=== PATIENT | female | born 1995 | race Two or more races ===

== ENCOUNTER 2020-04-21 10:57 | Observation (INO) | payer MEDICAID ==
[2020-04-21] MEDS ORDERED: PREN-96 PO (13:09)
== END 2020-04-21 15:00 | disposition home or self-care (01) ==
LOC: LDRP 10:57
PROVIDERS: ADMIT Specialist; ATTEND Specialist
DX: O48.0 Post-term pregnancy (principal); O62.9 Abnormality of forces of labor, unspecified; Z3A.40 40 weeks gestation of pregnancy
CPT/HCPCS: 59025; 76818; 81002; G0378

== ENCOUNTER 2020-04-22 13:00 | Observation (INO) | payer MEDICAID ==
[~2020-04-22 13:00] MED LIST: PREN-96 PO
== END 2020-04-22 14:25 | disposition home or self-care (01) ==
LOC: LDRP 13:00
PROVIDERS: ADMIT Specialist; ATTEND Specialist
DX: O26.893 Other specified pregnancy related conditions, third trimester (principal); R10.9 Unspecified abdominal pain; Z20.828 Contact with and (suspected) exposure to other viral communicable diseases; O99.891 Other specified diseases and conditions complicating pregnancy; H53.8 Other visual disturbances; Z3A.40 40 weeks gestation of pregnancy
CPT/HCPCS: 59025; 81002; G0378; U0003

== ENCOUNTER 2020-04-24 11:54 | Inpatient (IN) | payer MEDICAID ==
[~2020-04-24] VITALS: Ht 160 cm; Wt 123.8 kg
[2020-04-24] MEDS ORDERED: LIDOCAINE 2%HCL (LOCAL ANESTH.) INJ 20ML MDV IJ ONE (13:00)
[2020-04-24] MEDS ORDERED: WITCH HAZEL-GLYCERIN PAD TOP PRN (13:00)
[2020-04-24] MEDS ORDERED: DERMOPLAST 60ML BOTTLE TOP PRN (13:00)
[2020-04-24] MEDS ORDERED: PHISODERM TOP SOLN 240ML BTL TOP PRN (13:00)
[2020-04-24] MEDS: LACTATED RINGER'S 1,000 ML IV SCH (13:40)
[2020-04-24] MEDS: miSOPROStol 50 MCG per PRE-CUT 1/2 TAB PO PRN ×2 (13:59→18:07)
[2020-04-24 14:22] LABS: Albumin 2.9 g/dL (3.4-5.0); Calcium 8.9 mg/dL (8.5-10.1); Potassium 4.3 mmol/L (3.5-5.1); Uric Acid 4.6 mg/dL (2.6-6.0)
[2020-04-24 14:23] LABS: Basophils # (auto) 0 10 ^3/uL (0-0.2); Basophils % (auto) 0.3 % (0.0-2.0); Eosinophils # (auto) 0.1 10 ^3/uL (0-0.8); Eosinophils % (auto) 0.9 % (0.0-7.0); Hematocrit 38.7 % (36.0-46.0); Hemoglobin 12.7 g/dL (12.2-16.2); Lymphocytes # (auto) 1.4 10 ^3/uL (0.4-5.4); Lymphocytes % (auto) 11.7 % (10.0-50.0); Mean Corpuscular Hemoglobin 28.3 pg (28.0-32.0); Mean Corpuscular Hgb Conc. 32.9 g/dL (32.0-36.0); Mean Corpuscular Volume 86.1 fL (80.0-100.0); Monocytes % (auto) 8.3 % (0.0-12.0); Neutrophils # (auto) 9.6 10 ^3/uL (1.6-8.6); Neutrophils % (auto) 78.8 % (37.0-80.0); Platelet Count (auto) 377 10^3/uL (140-450); Red Blood Cells 4.49 10^6/uL (4.0-5.20); Red Cell Distribution Width 13.6 % (11.8-14.3); White Blood Cell 12.2 10^3/uL (4.4-10.8)
[2020-04-24 14:26] LABS: Bilirubin, Total 0.2 mg/dL (0.2-1.0); Total Protein 7.2 g/dL (6.4-8.2)
[2020-04-24 14:27] LABS: INR 0.94 (0.9-1.15); Partial Thromboplastin Time 27.1 sec (23.0-31.2)
[2020-04-24 14:57] LABS: Urine Bacteria NONE SEEN /hpf (None Seen); Urine Blood Negative /uL (Negative); Urine Specific Gravity 1.005 (1.001-1.035); Urine WBC 228 /hpf (0 - 5)
[2020-04-24 15:06] LABS: Amphetamine Screen, Urine NEGATIVE (NEGATIVE); Barbiturate Scree,Urine NEGATIVE (NEGATIVE); Benzodiazephine Screen, Urine NEGATIVE (NEGATIVE); Cannabinoid Screen, Urine NEGATIVE (NEGATIVE); Cocaine Screen, Urine NEGATIVE (NEGATIVE); Opiate Scree,Urine NEGATIVE (NEGATIVE); Phencyclidine Screen, Urine NEGATIVE (NEGATIVE)
[2020-04-24 15:15] LABS: Alcohol, Urine < 3.0 mg/dL (0-10)
[2020-04-24] MEDS ORDERED: LACTATED RINGER'S 1,000 ML IV ONE (19:15)
[2020-04-24] MEDS ORDERED: fentaNYL CITRATE 100 MCG/2 ML VL IV ONE (19:15)
[2020-04-24] MEDS ORDERED: ePHEDrine SULFATE 50 MG/ML AMP IV ONE ×2 (19:15→23:00)
[2020-04-24] MEDS ORDERED: LIDOCAINE HCL 2 %PF INJ 10ML AMP IJ ONE (19:15)
[2020-04-24] MEDS ORDERED: ROPIVACAINE HCL 200 ML EPI SCH ×2 (19:15→23:00)
[2020-04-24] MEDS ORDERED: NALOXONE HCL 0.4 MG/ML VIAL IV ONE ×2 (19:15→23:00)
[2020-04-24] MEDS ORDERED: LACTATED RINGER'S 500 ML IV ONE (23:00)
[2020-04-24] MEDS ORDERED: SODIUM CHLORIDE 0.9% 500 ML IV PRN (23:00)
[2020-04-25] MEDS: LACTATED RINGER'S 1,000 ML IV SCH ×2 (05:00→07:50)
[2020-04-25 05:06] LABS: RPR Non Reactive (Non Reactive); Rubella Antibodies, IgG 1.27 index (Immune >0.99)
[2020-04-25] MEDS ORDERED: LACT. RINGERS/OXYTOCIN 20UNITS 1,000 ML IV SCH ×2 (05:45→06:45)
[2020-04-25] MEDS ORDERED: TERBUTALINE SULFATE 1 MG/ML 1ML VIAL SC ONE (05:45)
[2020-04-25] MEDS ORDERED: LIDOCAINE HCL 2 %PF INJ 10ML AMP IJ ONE ×2 (07:46→11:30)
[2020-04-25] MEDS ORDERED: PROMETHAZINE HCL 25 MG/ML 1ML IV ONE (11:15)
[2020-04-25] MEDS ORDERED: NALOXONE HCL 0.4 MG/ML VIAL IV ONE (11:30)
[2020-04-25] MEDS ORDERED: ePHEDrine SULFATE 50 MG/ML AMP IV ONE (11:30)
[2020-04-25] MEDS ORDERED: fentaNYL CITRATE 100 MCG/2 ML VL IV ONE (11:30)
[2020-04-25] MEDS ORDERED: GENTAMICIN SULFATE 80 MG in D5W 5% 100 ML IV SCH (12:42)
[2020-04-25] MEDS ORDERED: ACETAMINOPHEN 325 MG TAB PO PRN (13:30)
[2020-04-25] MEDS ORDERED: ACETAMINOPHEN IV 1000 MG/100ML (10MG/ML) IV ONE (13:45)
[2020-04-25] MEDS ORDERED: ceFAZolin 1GM/50ML 50 ML IV SCH ×3 (14:00→23:00)
[2020-04-25] MEDS ORDERED: ROPIVACAINE HCL 100 ML EPI SCH (15:00)
[2020-04-25] MEDS ORDERED: PROPOFOL 10 MG/ML 20 ML IV ONE (16:20)
[2020-04-25] MEDS ORDERED: ROCURONIUM 10MG/ML 10ML VIAL IV ONE (16:23)
[2020-04-25] MEDS ORDERED: fentaNYL CITRATE 100 MCG/2 ML VL ONE (16:28)
[2020-04-25] MEDS ORDERED: LABETALOL HCL 5 MG/ML ML 20ML VIAL IV ONE (17:00)
[2020-04-25] MEDS ORDERED: oxyTOCIN 10 UNIT/ML 10ML VIAL ONE (17:08)
[2020-04-25] MEDS ORDERED: ONDANSETRON HCL 4 MG/2 ML VIAL ONE (17:19)
[2020-04-25] MEDS ORDERED: ACETAMINOPHEN IV 1000 MG/100ML (10MG/ML) IV PRN (17:45)
[2020-04-25] MEDS ORDERED: LACTATED RINGER'S 1,000 ML IV SCH (17:45)
[2020-04-25] MEDS ORDERED: GUM (CHEWING) 1 GUM CHEW CHEW ONE (17:45)
[2020-04-25] MEDS ORDERED: ONDANSETRON HCL 4 MG/2 ML VIAL IV PRN (17:45)
[2020-04-25] MEDS ORDERED: METOCLOPRAMIDE HCL 5MG/ml INJ 2ml VIAL IV PRN (18:00)
[2020-04-25] MEDS ORDERED: HYDROmorphone HCL 2 MG/ML VL IV PRN ×2 (18:00)
[2020-04-25] MEDS ORDERED: LABETALOL HCL 5 MG/ML 4ML SYRINGE IV PRN (18:00)
--- NOTE | 2020-04-25 20:40 | NUR ---
SBAR received form OR Nurse, Wendy Sandhu RN, current vital BP 136/94, O2 stat 94%, Temp 100.4. Fundus at 2 below and firm. 150 mls of yellow urine. Pt put into LDRP 3 and on pulse ox monitor.
[2020-04-25 21:00] VITALS: BP 128/86
--- NOTE | 2020-04-25 21:01 | NUR ---
[place] skin to skin with mom for 60 minutes.
--- NOTE | 2020-04-25 21:41 | NUR ---
SBAR to DR Oliveros. Reviewed pt vital signs, no orders received.
--- NOTE | 2020-04-25 23:29 | NUR ---
SBAR to DR Delgado, Pt temp 102.0, reviewed vitals, received order to D/C Ancef and Change to Zosyn 3.75 Q 6 HR, CBC and Hospitalist consult.
--- NOTE | 2020-04-25 23:32 | NUR ---
SBAR to DR FARFAN, reviewed pts vital sign (HR) with him. Recieved order to put in a Cardio Consult, Blood culture, Lactic Acid, TSH, CMP and CBC. Mariangel Robitussin 10mg Q6HR, wants follow up with lab results.
[2020-04-26] MEDS ORDERED: guaiFENesin 200 MG/10 ML UD GT PRN
--- NOTE | 2020-04-26 00:03 | NUR ---
Cardiology Consult ordered per Marcus Falcon NP.
[2020-04-26] MEDS ORDERED: PIPERACILLIN-TAZOB 3.375GM 100 ML IV ONE (00:37)
[2020-04-26] MEDS: PIPERACILLIN-TAZOB 3.375GM 100 ML IV SCH ×4 (01:12→18:21)
[2020-04-26 01:14] LABS: Basophils # (auto) 0 10 ^3/uL (0-0.2); Basophils % (auto) 0.1 % (0.0-2.0); Eosinophils # (auto) 0 10 ^3/uL (0-0.8); Hematocrit 30.7 % (36.0-46.0); Hemoglobin 10.1 g/dL (12.2-16.2); Lymphocytes # (auto) 0.8 10 ^3/uL (0.4-5.4); Lymphocytes % (auto) 4.3 % (10.0-50.0); Mean Corpuscular Hemoglobin 28.7 pg (28.0-32.0); Mean Corpuscular Hgb Conc. 33.1 g/dL (32.0-36.0); Mean Corpuscular Volume 86.7 fL (80.0-100.0); Monocytes % (auto) 5.7 % (0.0-12.0); Neutrophils # (auto) 15.8 10 ^3/uL (1.6-8.6); Neutrophils % (auto) 89.9 % (37.0-80.0); Platelet Count (auto) 270 10^3/uL (140-450); Red Blood Cells 3.54 10^6/uL (4.0-5.20); Red Cell Distribution Width 13.9 % (11.8-14.3); White Blood Cell 17.6 10^3/uL (4.4-10.8)
[2020-04-26 01:30] LABS: Albumin 2.2 g/dL (3.4-5.0); Calcium 8.4 mg/dL (8.5-10.1); Potassium 3.4 mmol/L (3.5-5.1)
[2020-04-26 01:33] LABS: BUN/Creatinine Ratio 8.1
[2020-04-26 01:35] LABS: Bilirubin, Total 0.6 mg/dL (0.2-1.0); Total Protein 5.6 g/dL (6.4-8.2)
[2020-04-26] MEDS: HYDROmorphone HCL 2 MG/ML VL IV PRN ×2 (01:51→07:08)
--- NOTE | 2020-04-26 02:31 | NUR ---
SBAR to DR FARFAN, reviewed lab results, No new orders received.
[2020-04-26 03:00] VITALS: BP 132/42
[2020-04-26 07:30] VITALS: BP 136/73
--- NOTE | 2020-04-26 09:10 | NUR ---
Ambulation: Patient OOB with standby assistance by RN. Patient ambulated to chair with steady gait. Clean gown provided and bed linen changed. Patient sitting on chair with no distress noted.
--- NOTE | 2020-04-26 09:35 | NUR ---
CARDIO CONSULT CALLED IN REGARDS INCREASED HEAR RATE. DR MORSE IS PAGED PER HIS EXCHANGE.
[2020-04-26 09:40] LABS: Basophils # (auto) 0 10 ^3/uL (0-0.2); Basophils % (auto) 0.2 % (0.0-2.0); Eosinophils # (auto) 0 10 ^3/uL (0-0.8); Eosinophils % (auto) 0.1 % (0.0-7.0); Hematocrit 31.6 % (36.0-46.0); Hemoglobin 10.4 g/dL (12.2-16.2); Lymphocytes # (auto) 1.1 10 ^3/uL (0.4-5.4); Lymphocytes % (auto) 6.7 % (10.0-50.0); Mean Corpuscular Hemoglobin 28.5 pg (28.0-32.0); Mean Corpuscular Hgb Conc. 33.1 g/dL (32.0-36.0); Mean Corpuscular Volume 86.1 fL (80.0-100.0); Monocytes % (auto) 6.3 % (0.0-12.0); Neutrophils # (auto) 14.1 10 ^3/uL (1.6-8.6); Neutrophils % (auto) 86.7 % (37.0-80.0); Platelet Count (auto) 260 10^3/uL (140-450); Red Blood Cells 3.66 10^6/uL (4.0-5.20); Red Cell Distribution Width 14.1 % (11.8-14.3); White Blood Cell 16.2 10^3/uL (4.4-10.8)
[2020-04-26] MEDS ORDERED: SIMETHICONE 80 MG CHEWABLE TABLET PO PRN (10:30)
[2020-04-26] MEDS ORDERED: HYDROcodone-ACET 5/325MG TAB PO PRN (10:30)
--- NOTE | 2020-04-26 10:42 | NUR ---
dr royal updated on pt status with vital signs, and [id number] cardio consult, orders received for DAY 1. orders into be implementation.
--- NOTE | 2020-04-26 10:45 | NUR ---
orders recieved to discontinue blue catheter, blue catheter taken out pt tolerated well
--- NOTE | 2020-04-26 10:58 | NUR ---
Ambulation: Patient OOB with standby assistance by RN. Patient ambulated to bathroom with steady gait. Patient able to void 100 cc without difficulty. [facility] teaching provided with returned demonstration by patient. Clean gown provided and bed linen changed. Patient ambulated back to bed with steady gait and no distress noted.
[2020-04-26 11:02] VITALS: BP 122/76
--- NOTE | 2020-04-26 13:45 | NUR ---
EKG DONE BY TREE SURGEON, REVIEWED BY DR HERNANDEZ IN THE ER. COPY IN THE CHART
[2020-04-26 14:52] VITALS: BP 122/79
[2020-04-26] MEDS: HYDROcodone-ACET 5/325MG TAB PO PRN (15:40)
--- NOTE | 2020-04-26 16:00 | NUR ---
CLEANER AND DYER AT BEDSIDE.
[2020-04-26 18:30] VITALS: BP 119/82
--- NOTE | 2020-04-26 18:39 | NUR ---
POSITIVE COVID RESULTS RECEIVED, COVID ISOLATION INITIATED. Addendum: 04/26/20 at 2311 by Kait Roberson RN RN WRONG PATIENT
[2020-04-26] MEDS: LACTATED RINGER'S 1,000 ML IV SCH (20:30)
[2020-04-26] MEDS: DOCUSATE SOD 100 MG CAP PO SCH (22:00)
[2020-04-26 23:30] VITALS: BP 124/78
[2020-04-26] MEDS: IBUPROFEN 800 MG TAB PO PRN (23:50)
[2020-04-27] MEDS: guaiFENesin 200 MG/10 ML UD PO PRN
[2020-04-27] MEDS: PIPERACILLIN-TAZOB 3.375GM 100 ML IV SCH ×4 (00:28→19:29)
[2020-04-27 03:00] VITALS: BP 117/80
[2020-04-27] MEDS: HYDROcodone-ACET 5/325MG TAB PO PRN (06:05)
[2020-04-27 07:10] VITALS: BP 126/80
[2020-04-27] MEDS: DOCUSATE SOD 100 MG CAP PO SCH ×2 (10:22→21:31)
[2020-04-27 11:00] VITALS: BP 126/84
[2020-04-27 14:45] VITALS: BP 132/86
--- NOTE | 2020-04-27 15:45 | NUR ---
DR BREWER UPDATED ON PT STATUS WITH VITAL SIGNS, ORDERS RECEIVED TO CONTINUE WITH ZOSYN , ORDERS CARRIED OUT
--- NOTE | 2020-04-27 16:40 | NUR ---
ECHO CALLED IN REGARDS THE PT'S ECHO RESULTS , NO ANSWER LEFT MESSAGE
[2020-04-27] MEDS: LACTATED RINGER'S 1,000 ML IV SCH (18:28)
[2020-04-27 19:00] VITALS: BP 125/76
--- NOTE | 2020-04-27 19:05 | NUR ---
Ambulation: PT OOB and ambulating in the hallway with open crib. Gait steady. No distress noted.
[2020-04-27] MEDS ORDERED: BISACODYL 10 MG RECT SUPP PR PRN (21:30)
[2020-04-27] MEDS: IBUPROFEN 800 MG TAB PO PRN (21:31)
[2020-04-27 23:15] VITALS: BP 133/87
--- NOTE | 2020-04-28 00:02 | NUR ---
Call placed to Yesica Mcgraw CNM regarding IV fluids. Order received to saline lock IV.
[2020-04-28] MEDS: guaiFENesin 200 MG/10 ML UD PO PRN (00:53)
[2020-04-28] MEDS: PIPERACILLIN-TAZOB 3.375GM 100 ML IV SCH ×2 (00:58→06:57)
[2020-04-28] MEDS: HYDROcodone-ACET 5/325MG TAB PO PRN ×2 (02:46→06:58)
[2020-04-28 03:30] VITALS: BP 119/78
[2020-04-28] MEDS: IBUPROFEN 800 MG TAB PO PRN (05:20)
[2020-04-28 07:00] VITALS: BP 127/87
--- NOTE | 2020-04-28 09:30 | NUR ---
Discharge: Discharge instructions given as ordered. Pt encouraged to follow up with SPINNING MULE OPERATOR as instructed. All questions and concerns addressed. Patient verbalized understanding. Medication reconciliation completed and copy given to patient. All required/requested vaccines given and copies of vaccinations given to patient. Patient encouraged to prepare to depart unit.
[2020-04-28] MEDS ORDERED: TETANUS-DIPTH-ACEL PERTUSSIS 0.5ML SYR Tdap IM ONE ×2 (10:06→12:15)
[2020-04-28 11:00] VITALS: BP 130/82
[2020-04-28 11:24] VITALS: BP 130/82
--- NOTE | 2020-04-28 11:24 | NUR ---
Discharge: Patient taken to vehicle with all personal belongings, accompanied by staff and family member. No distress noted at time of departure, no adverse changes in status since initial assessment.
== END 2020-04-28 11:24 | disposition home or self-care (01) | DRG 540 ==
LOC: LDRP 11:54
PROVIDERS: ADMIT Specialist; ATTEND Specialist
PROC: 3E0R3BZ Introduction of Anesthetic Agent into Spinal Canal, Percutaneous Approach (ICD-10-PCS; 2020-04-24)
PROC: 00HU33Z Insertion of Infusion Device into Spinal Canal, Percutaneous Approach (ICD-10-PCS; 2020-04-24)
PROC: 10907ZC Drainage of Amniotic Fluid, Therapeutic from Products of Conception, Via Natural or Artificial Opening (ICD-10-PCS; 2020-04-25)
PROC: 3E0P7VZ Introduction of Hormone into Female Reproductive, Via Natural or Artificial Opening (ICD-10-PCS; 2020-04-25)
PROC: 10H07YZ Insertion of Other Device into Products of Conception, Via Natural or Artificial Opening (ICD-10-PCS; 2020-04-25)
PROC: 10D00Z1 Extraction of Products of Conception, Low, Open Approach (ICD-10-PCS; principal; 2020-04-25 16:34)
DX: O62.1 Secondary uterine inertia (principal); O48.0 Post-term pregnancy; O77.0 Labor and delivery complicated by meconium in amniotic fluid; O99.214 Obesity complicating childbirth; E66.01 Morbid (severe) obesity due to excess calories; Z37.0 Single live birth; Z3A.40 40 weeks gestation of pregnancy; O90.89 Other complications of the puerperium, not elsewhere classified; R00.0 Tachycardia, unspecified; Z23 Encounter for immunization; O86.4 Pyrexia of unknown origin following delivery
CPT/HCPCS: 36415; 62282; 80053; 80307; 81001; 81002; 83605; 84443; 84550; 85025; 85610; 85730; 86592; 86762; 86850; 86900; 86901; 87040; 90715; 93306; 94760; 94762; 96360; 96361; 96372; G0378; J0131; J0690; J2405; J2543; J2590; J2704; J7060

== ENCOUNTER 2024-11-13 22:30 | Emergency (ER) | payer MEDICAID ==
[~2024-11-13] VITALS: Ht 160 cm; Wt 132.0 kg
[2024-11-13 22:47] VITALS: BP 142/95; PULSE 82; RESP 18; TEMP 97.4; O2SAT 98
--- NOTE | 2024-11-13 23:56 | ED.PDOC ---
Musculoskeletal HPI Comments Patient complaining of bilateral foot swelling x3 days. Patient reports having done one week ago. States she went to OBGYN on Monday. Denies any pain. States the swelling goes down in the morning and comes back of the in the day after walking. Chief Complaint: Extremity Swelling Time Seen by MD: 22:55 Reviewed Notes: Nurses Notes Allergies: Coded Allergies: NO KNOWN ALLERGIES (Unverified , 03/11/20) Home Meds Reported Medications Vit W/ Ferrous Fumara ( One Daily) Daily Tab, 1 TAB PO DAILY, #90 TAB 3 Refills 04/21/20 Information Source: Patient Mode of Arrival: Ambulatory Location: Bilateral Extremity Location: Foot Past Medical History PAST MEDICAL HISTORY: Denies Surgical History: Denies all surgeries PATIENT SCHEDULING MANAGER History: No Pertinent PATIENT SCHEDULING MANAGER History Constitutional: denies: chills, diaphoresis, fatigue, fever, malaise, sweats, weakness, others EENTM: denies: blurred vision, double vision, ear bleeding, ear discharge, ear drainage, ear pain, ear ringing, eye pain, eye redness, hearing loss, mouth pain, mouth swelling, nasal discharge, nose bleeding, nose congestion, nose pain, photophobia, tearing, throat pain, throat swelling, voice changes, others Respiratory: denies: cough, hemoptysis, orthopnea, SOB at rest, shortness of breath, SOB with excertion, stridor, wheezing, others Cardiovascular: reports: edema; denies: chest pain, dizzy spells, diaphoresis, Dyspnea on exertion, irregular heart beat, left arm pain, lightheadedness, palpitations, PND, syncope, others Gastrointestinal: denies: abdomen distended, abdominal pain, blood streaked bowels, constipated, diarrhea, dysphagia, difficulty swallowing, hematemesis, melena, nausea, poor appetite, poor fluid intake, rectal bleeding, rectal pain, vomiting, others Genitourinary: denies: abnormal vagina bleeding, burning, dyspareunia, dysuria, flank pain, frequency, hematuria, incontinence, pain, , vagina discharge, urgency, others Neurological: denies: dizziness, fainting, headache, left sided numbness, left sided weakness, numbness, paresthesia, pre-existing deficit, right sided numbness, right sided weakness, seizure, speech problems, tingling, tremors, w eakness, others Musculoskeletal: denies: back pain, gout, joint pain, joint swelling, muscle pain, muscle stiffness, neck pain, others Integumetry: denies: bruises, change in color, change in hair/nails, dryness, laceration, lesions, lumps, rash, wounds, others Physical Exam General Appearance: No Apparent Distress, Normal HEENT: Normal ENT Inspection, Pharynx Normal, TMs Normal Neck: Full Range of Motion, Non-Tender, Normal, Normal Inspection Respiratory: Chest Non-Tender, Lungs Clear, No Accessory Muscle Use, No Respiratory Distress, Normal Breath Sounds Cardiovascular: No JVD, No Murmur, No Gallop, Normal Peripheral Pulses, Regular Rate/Rhythm Breast Exam: Deferred Gastrointestinal: No Organomegaly, Non Tender, No Pulsatile Mass, Normal Bowel Sounds, Soft Genitalia: Deferred Pelvic: Deferred Rectal: Deferred Extremities: No calf tenderness, Normal capillary refill, Normal inspection, Normal range of motion, Non-tender, No pedal edema Musculoskeletal : Location: Bilateral Extremity Location: Foot (2+ pitting edema noted in bilateral feet.) Apperance: Normal Neurologic: Alert, recruiting consultant II-XII nml as Tested, No Motor Deficits, Normal Affect, Normal Mood, No Sensory Deficits Cerebellar Function: Normal Reflexes: Normal Skin: Dry, Normal Color, Warm Lymphatic: No Adenopathy Was a procedure done? Was a procedure done?: No Differential Diagnosis EXT Differential Diagnosis: Cellulitis, Deep Vein Thrombosis, Compartment Syndrome, Fracture, Sprain, Dislocation, Gout X-Ray, Labs, Meds, VS Vital Signs Date Time Temp Pulse Resp B/P (MAP) Pulse Ox O2 Delivery O2 Flow Rate FiO2 11/13/24 22:47 97.4 82 18 142/95 (111) 98 97.4 X-Ray, Labs, Meds, VS Comment Imaging: X-rays and CT scans were reviewed and interpreted by this provider, imaging shows no fractures and no pathological disease. Pending radiology review. Laboratory: Labs reviewed and interpreted by this provider. No significant abnormalities noted. Patient has prior medical visits reviewed. Med reconciliation performed Vital signs reviewed Time of 1ST Reevaluation: 23:55 Reevaluation 1ST: Improved Patient Education/Counseling: Diagnosis, Treatment, Need For Follow Up (Follow up in the emergency department in the next 24-48 hours if symptoms worsen. It was advised to follow up with your primary care doctor in the next 3-4 days for further evaluation.) Family Education/Counseling: Diagnosis Departure 1 Departure Time of Disposition: 23:55 Impression: Primary Impression: Peripheral edema Disposition: 01 HOME / SELF CARE / HOMELESS Condition: Stable Discharged With: Self Critical Care Note Critical Care Time?: No Stability Stability form required: No Heart Score Heart Score: Heart Score Response (Comments) Value History N/A 0 EKG N/A 0 Age N/A 0 Risk Factors N/A 0 Troponin N/A 0 Total 0 [facility] Nov 13, 2024 23:56
== END 2024-11-13 22:54 | disposition home or self-care (01) ==
LOC: ER 22:30
DX: O90.89 Other complications of the puerperium, not elsewhere classified (principal); R60.0 Localized edema